=== PATIENT | female | born 1985 ===

== ENCOUNTER 2017-04-05 12:34 | Emergency (ER) | payer MEDICAID, SELFPAY ==
[2017-04-05 13:53] VITALS: BMI 43.8
[2017-04-05] MEDS ORDERED: Lactated Ringer's 1,000 ML IV SCH (14:00)
[2017-04-05 14:09] LABS: HEMOGLOBIN 9.9 g/dL (12.0-16.0); MEAN CELL VOLUME 80.4 fl (81.0-99.0); MEAN CORPUSCULAR HEMOGLOBIN 26.5 pg (27.0-31.0); MEAN CORPUSCULAR HGB CONC 32.9 g/dL (33.0-37.0); RBC 3.72 Mil/uL (3.80-5.20); RED CELL DISTRIBUTION WIDTH 13.9 % (11.5-14.5)
[2017-04-05 14:20] LABS: ALB/GLOB RATIO 1.1 (1.0-2.1); ALBUMIN 3.7 g/dL (3.5-5.0); ALT/SGPT 32 U/L (9-52); AST/SGOT 40 U/L (14-36); BLOOD UREA NITROGEN 5 mg/dl (7-17); CALCIUM 8.9 mg/dL (8.4-10.2); GFR AFRICAN-AMERICAN > 60; GFR NON-AFRICAN AMERICAN > 60
[2017-04-05 15:31] LABS: URINE BILIRUBIN NEGATIVE (NEGATIVE); URINE COLOR LT. YELLOW (YELLOW); URINE GLUCOSE (UA) NEG (Normal)
[2017-04-05 15:32] LABS: PH,URINE 6.5 (5.0-8.0); URINE BLOOD NEGATIVE (NEGATIVE); URINE LEUKOCYTE ESTERASE MOD Leu/uL (Negative); URINE NITRATE NEGATIVE (NEGATIVE); URINE PROTEIN NEGATIVE (NEGATIVE); URINE UROBILINOGEN 0.2 mg/dL (0.2-1.0)
[2017-04-05 15:39] LABS: SQUAMOUS EPITHIAL 15 /hpf (0-5); URINE BACTERIA MOD (<OCC)
[2017-04-05 16:05] LABS: URINE CLARITY CLEAR (Clear)
[2017-04-05 19:00] LABS: URINE BACTERIA OCC (<OCC); URINE BILIRUBIN NEGATIVE (NEGATIVE); URINE BLOOD NEGATIVE (NEGATIVE); URINE CLARITY SLIGHTY-CLOUDY (Clear); URINE COLOR STRAW (YELLOW); URINE GLUCOSE (UA) NEG (Normal); URINE LEUKOCYTE ESTERASE LARGE Leu/uL (Negative); URINE NITRATE NEGATIVE (NEGATIVE); URINE PROTEIN NEGATIVE (NEGATIVE); URINE UROBILINOGEN 0.2-1.0 mg/dL (0.2-1.0)
[2017-04-05 19:16] LABS: SQUAMOUS EPITHIAL 7 /hpf (0-5)
[2017-04-05 20:24] VITALS: BP 113/58; PULSE 79; TEMP 97.6; O2SAT 100
--- NOTE | 2017-04-05 22:41 | OBHP ---
Datetime: 04/05/2017 13:42 IP Adm Impression: , intrauterine IP Chief Complaint Other: Abdominal pain IP Admit Plan: Observation/Evaluation Admit Comment, IP Provider: CC: "abdominal pain" HPI: 32 YO IUP 29.3 weeks with no sig PMH, presents to [facility] with abdominal pain. Patie nt states that she has abdominal pain that started yesterday around 5PM and points to her epigastric area when asked about the location of the pain. Describes the pain as cramping/burning in nature. Pt notes that the pain comes and goes, and rates the pain as a 7/10 in severity. Pt states that she had the pain last night for the first time, and she noticed it first when she laid down after eating dinn er. Additionally, pt reports to dirrhea yesterday, no blood noted, yellow in color. Denies chest pain , n/v, constipation, dyspnea, headache, dizziness, dysuria and urinary frequency. Good FM, -ROM, -VB. PMH: denies PSH: denies [employer] hx: 3 NVD, term deliveries. pt is currently sexually active, last sexual activity was 4 day s ago, denies hx of STI FH: denies SH: denies ETOH, drugs, and smoking. Allergies: NKDA Medications: PNV PE: VS: stable, afebrile GEN: NAD Cardio: S1S2, no M/G/R Resp: clear vesicular sounds b/l Abdomen: gravid, NT, BS+, small subcutaneous lipoma noted in the RUQ Ext: no edema, NT Cervix: closed/thick/ high monitor: HR: 145 with moderate variability; Category I. No contractions noted Assessment/Plan: 32 YO IUP at 29.3 wks GA presents to [facility] with abdominal pain. Pt is currently in observation with pending blood work and UA. -continue monitoring -follow up with CBC, CMP and UA -Intravenous access, IV LR 1L bolus -PO tylanol 650mg given for pain -observe and reassess. Patient was reassessed 2 hrs later after IV fluids and tylenol. Pt feels better, rates pain as 0/1 0. CBC pertinent for hb/hct 9.9/29.9, patient prescribed PO Ferrous sulfate 325mg BID. Additionally, pt had a UA with 46 WBC, 15 epithelial cells and moderate bacteria, concerning for UTI. Pt prescribed Macrobid 100mg BID x 7 days. Pt has a UA and UC pending to follow up in [facility] clinic on or Wednesday (04/08 or 04/09) this week. Pt educated on GERD, eating small meals and to avoid greasy f oods. Pt d/c to home. Sirisha Best, PGY I [facility] ADDENDUM: PT seen _ examined by me with dr best. agree with above with follwing clarification pt c/o midepigastric pain with radiation ro LUQ which she attributes to eating greasy food _ feels like pain due to diarrhea. denies uterine cramps or ctxs. denies coitus in past mo p: as above Pelvic Type - PN: Adequate Extremities - PN: Normal Abdomen - PN: Normal Back - PN: Not Done Breast - PN: Not Done Lungs - PN: Normal Heart - PN: Normal Thyroid - PN: Normal Neurologic - PN: Normal HEENT - PN: Normal General - PN: Normal FHR - Baseline A Provider: 145 EGA AdmitDate IP: 29.3 Vital Signs Provider: Reviewed IP Chief Complaint: Other NICHD Variability Prov Fetus A: Moderate 6-25bpm NICHD Accel Fetus A IP Provider: [id number] FHR Category Provider Fetus A: Category I Dilatation, Provider: 0 Effacement, Provider: 0 Station, Provider: -4 Genitourinary Exam: Normal DTRs - PN: Not Done
== END 2017-04-05 16:00 | disposition home or self-care (01) ==
LOC: H.EROB2 12:34
DX: O26.93 Pregnancy related conditions, unspecified, third trimester (principal); R10.13 Epigastric pain; Z3A.28 28 weeks gestation of pregnancy